=== PATIENT | male | born 1965 | race Caucasian/White ===

== ENCOUNTER 2016-06-05 22:22 | Emergency (ER) | payer MEDICAID ==
[2016-06-05 22:22] LABS: BASO % 0.7 % (0-2); BASO ABSOLUTE COUNT 0.1 tho/cmm (0.0-0.2); EOS % 3.1 % (0-7); EOSINOPHIL ABSOLUTE COUNT 0.4 tho/cmm (0.0-0.7); HCT-HEMATOCRIT 42.4 % (36.0-53.5); HGB-HEMOGLOBIN 14.5 gm/dl (13.5-17.0); IMMATURE GRANULOCYTES ABSOLUTE 0.18 tho/cmm (0-0.03); IMMATURE GRANULOCYTES PERCENT 1.5 % (0-0.3); LYMPH % 30.9 % (20-45); LYMPH ABSOLUTE COUNT 3.6 tho/cmm (0.8-4.5); MCH (MEAN CORPUSCULAR HGB) 30.2 pg (28.0-32.0); MCHC MEAN CORPUSCULAR HGB CONC 34.2 % (32.0-36.0); MCV (MEAN CELL VOLUME) 88.3 fl (82.0-96.0); MEAN PLATELET VOLUME 12.1 cmc (9.4-12.4); MONO % 7.9 % (0-12); MONOCYTE ABSOLUTE COUNT 0.9 tho/cmm (0.0-1.2); NEUTROPHIL ABSOLUTE COUNT 6.5 tho/cmm (1.6-8.0); NEUTROPHIL-AUTOMATED 6.5 tho/cmm (1.6-8.0); NEUTROPHILS % 55.9 % (40-80); PLATELET COUNT 206 tho/cmm (150-450); RED CELL DISTRIBUTION WIDTH 13.2 % (12.4-16.4); WHITE BLOOD COUNT 11.7 tho/cmm (4.0-10.0)
[~2016-06-05 22:22] MED LIST: ABILIFY5 MG PO; ASPIRIN81 MG PO; ATENOLOL/CHLORT1 TA PO; CATAFLAM50 MG PO; COZAAR100 MG PO; CYCLOBENZAPRINE10 MG PO; GABAPENTIN300 MG PO; GEMFIBROZIL600 M1 PO; GLUCOPHAGE1000 MG PO; JANUVIA100 MG PO; KEFLEX500 M4 PO; NORCO 5-325 TA1 EACH PO; NORCO 5/325 TAB1 TAB PO; OMEPRAZOLE20 M2 PO; PATADAY2.5 ML OP; TENORMIN50 MG PO; TRAZODONE50 MG PO; ZOFRAN ODT4 MG/UDTAB PO
[2016-06-05] MEDS ORDERED: AMLODIPINE BESY10 M1 PO (22:24)
[2016-06-05] MEDS ORDERED: MAPAP500 M3 PO (22:25)
[2016-06-05] MEDS ORDERED: ULTRAM50 M1 PO (22:26)
[2016-06-05 22:27] LABS: URINE BILIRUBIN NEGATIVE (NEG); URINE BLOOD SMALL (NEG); URINE GLUCOSE (UA) NEGATIVE (NEG); URINE KETONE NEGATIVE (NEG); URINE LEUKOCYTE ESTERASE POSITIVE (NEG); URINE NITRITE NEGATIVE (NEG); URINE PROTEIN SMALL (NEG); URINE SPECIFIC GRAVITY 1.005 (1.003-1.030)
[2016-06-05] MEDS ORDERED: AMARYL4 M1 PO (22:27)
[2016-06-05] MEDS ORDERED: COREG25 M1 PO (22:27)
[2016-06-05] MEDS ORDERED: WELLBUTRIN XL150 M1 PO (22:27)
[2016-06-05 22:31] LABS: URINE COLOR YELLOW
[2016-06-05 22:32] LABS: URINE APPEARANCE CLEAR
[2016-06-05 22:33] LABS: ALB/GLOB RATIO 1.1 (0.8-2.0); ALBUMIN 3.7 g/dl (3.5-5.0); ALKALINE PHOSPHATASE 98 U/L (33-138); ALT/SGPT 26 U/L (12-78); ANION GAP 13 mmol/L (0-20); AST/SGOT 17 U/L (10-40); BILIRUBIN,TOTAL 0.2 mg/dl (0.0-1.5); BLOOD UREA NITROGEN 12 mg/dl (6-24); CALCIUM 8.7 mg/dl (8.5-10.5); CARBON DIOXIDE-VENOUS 27 mmol/L (22-32); CHLORIDE 104 mmol/l (96-110); CREATININE 0.96 mg/dl (0.60-1.30); GLUCOSE 101 mg/dL (70-110); POTASSIUM 3.5 mmol/L (3.7-5.1); SODIUM 140 mmol/L (135-145); eGFR VALUE FOR BLACK >90 mL/Min
[2016-06-05] MEDS ORDERED: HYDROCODON-ACE1 EA16 PO (22:56)
== END 2016-06-05 23:10 ==
LOC: EDMED 22:22
PROVIDERS: Emergency Medicine Emergency Medical Services
DX: M54.9 Dorsalgia, unspecified (principal); I10 Essential (primary) hypertension; E11.9 Type 2 diabetes mellitus without complications; E78.00 Pure hypercholesterolemia, unspecified; F17.210 Nicotine dependence, cigarettes, uncomplicated; Z98.890 Other specified postprocedural states